=== PATIENT | male | born 2000 | race Caucasian/White ===

== ENCOUNTER 2023-01-06 15:23 | Emergency (ER) | payer OTHER, SELFPAY ==
[2023-01-06 15:35] VITALS: BP 134/78; PULSE 73; RESP 16; TEMP 36.9; O2SAT 99
--- NOTE | 2023-01-06 15:36 | ED.GENADULT ---
HPI - General Adult General Chief complaint: Skin/Abscess/Foreign Body Stated complaint: noticed lump under ribs Source: patient, RN notes reviewed and old records reviewed Mode of arrival: ambulatory Limitations: no limitations History of Present Illness HPI narrative: 22 year old male presents to express care accompanied by with complaints of noting last evening a bulge to his mid abdomen area in ventral area. Patient reports that his abdomen is sore in area where he has noted bulge. Patient reports that he has had a bad cough for a couple of days and wonders if the cough has caused this bulge. Patient denies any known injury to his abdomen at work or at gym. Small bulging ventral abdomen area noted when patient is semi reclined position with mild palpable tenderness.Patient has been taking Mucinex DM for his cough. Patient was recently discharged from [employer]. MD complaint: bulge ventral abdominal area Onset (ago): day(s) (noted last night) Location: abdomen (ventral mid) Severity scale (1-10): 2 Pain Consistency: intermittent Exacerbating factors: other (cough) Treatments prior to arrival: none Related Data Allergies Allergy/AdvReac Type Severity Reaction Status Date / Time No Known Allergies Allergy Verified 01/06/23 15:34 Review of Systems Review of Systems: CONSTITUTIONAL: Denies fever, chills, or sweats. ENT: Denies rhinorrhea, congestion, sore throat, or otalgia. CARDIOVASCULAR: Denies chest pain, palpitations, or edema. RESPIRATORY: Reports that he has had cough denies any dyspnea. GASTROINTESTINAL: Reports abdominal soreness and bulging area in ventral abdomen region, denies any nausea, vomiting, diarrhea. GENITOURINARY: Denies dysuria or hematuria. SKIN: Denies rash or itching. MUSCULOSKELETAL: Denies back pain, joint pain, or myalgia. NEUROLOGIC: Denies headache, numbness, or weakness. All systems reviewed & are unremarkable except as noted in HPI and below [facility] Social History Social History (Updated 01/07/23 @ 16:09 by Katherine Freeman NP) Smoking status: Never smoker Alcohol intake: current Alcohol use details: rare social Substance use type: does not use Living arrangements: with family Gender identity (if verbalized by the patient): Male Comments At time of signature, agree with nursing past medical, surgical, social and family history. There is no relevant family history pertinent to the presenting complaint Exam Narrative: GENERAL: Well-appearing, well-nourished, and in no acute distress. HEAD: Normocephalic, atraumatic. EYES: PERRLA, conjunctivae clear, and EOMI. ENT: Nares clear. Mucous membranes moist. Oropharynx without edema, erythema, or lesions. Tonsils not enlarged and without exudate. NECK: Supple. No lymphadenopathy CHEST: Speaks in full sentences. No respiratory distress. SAO2 99% on room air HEART: Regular rate and rhythm. ABDOMEN: Soft,small distended area to mid ventral area noted when patient is semi reclined . No guarding, rebound tenderness, or rigid. No pulsatilla masses. Bowel sounds present in all four quadrants. No organomegaly. Negative Lester?s sign. No periumbilical tenderness. No Supra public tenderness or distension. Good femoral pulses bilaterally.. No scars or surface trauma. SKIN: Warm, dry, no rash. NEURO:? Alert and oriented x3. PSYCH: Normal mood and affect Course Course Emergency Course: Patient is aware of diagnosis, understands and agrees to treatment plan.? Anticipatory guidance given.? Patient agrees to follow-up as directed and is aware of reasons to seek care at the emergency department. Portions of this record may have been created with voice recognition software Level of Care: Express Care Visit Vital Signs Vital signs: Vital Signs Temperature 36.9 C 01/06/23 15:35 Pulse Rate 73 01/06/23 15:35 Respiratory Rate 16 01/06/23 15:35 Blood Pressure 134/78 01/06/23 15:35 Pulse Oximetry 99 01/06/23 1
== END 2023-01-06 16:05 | disposition home or self-care (01) ==
PROVIDERS: Emergency Provider Registered Nurse
DX: K43.6 Other and unspecified ventral hernia with obstruction, without gangrene (principal)
CPT/HCPCS: 99211; G0463